=== PATIENT | male | born 1945 | race Caucasian/White ===

== ENCOUNTER 2019-04-04 10:09 | Inpatient (IN) ==
--- NOTE | 2019-04-04 10:27 | Emergency Department Note ---
ED Disposition Clinical Impression: Hypertension, Pre-syncope, Penicillin allergy, NSTEMI (non-ST elevated myocardial infarction), Tachycardia Disposition: Still a Patient Condition on Discharge: Fair Instructions: DI for Syncope in Adults (Fainting), DI for Syncope in Children (Fainting) Referrals: Tyrell Lynch MD [Primary Care Provider] - - Critical Care Critical Care Time: No Attestation: On , the high probability of a clinically significant, sudden or life threaten ing deterioration of the following system(s) required my full and direct attention, intervention and personal management. The time I documented below is in addition to time spent performing reported procedures but includes the following listed in this critical care notation. Medical Decision Making - Charbel Inquiry Pt receiving controlled substance: No Charbel was queried for this patient: No Vital Signs: 04/04/19 10:09 04/04/19 10:36 04/04/19 11:09 Temperature 97.5 F L Temperature Source Oral Pulse Rate [Left Radial] 130 H 126 H 126 H Respiratory Rate 18 20 18 Blood Pressure [Right Arm] 121/81 103/74 L 124/89 Blood Pressure Mean [Right Arm] 94 83 100 Blood Pressure Source [Right Arm] Automatic Cuff Automatic Cuff Blood Pressure Position [Right Arm] Sitting Supine Supine 02 Sat by Pulse Oximetry 98 99 100 Oxygen Delivery Method Room Air Room Air Nasal Cannula Oxygen Flow Rate (LPM) 2 - Lab Data Lab Results 04/04/19 09:30: WBC 9.5, RBC 5.21, Hgb 15.6, Hct 51.9, MCV 99.7 H, MCH 30.0, MCHC 30.1 L, RDW 16.8, Plt Count 412, MPV 7.8, Neut % (Auto) 68.3, Lymph % (Auto) 23.6, [place] % (Auto) 6.5, Eos % (Auto) 1.2, Baso % (Auto) 0.4, Neut # (Aut o) 6.5, Lymph # (Auto) 2.3, [place] # (Auto) 0.6, Eos # (Auto) 0.1, Baso # (Auto) 0.0 04/04/19 09:30: Sodium 138, Potassium 4.4, Chloride 103, Carbon Dioxide 24, Ani on Gap 15.4 H, BUN 19 H, Creatinine 1.30, Estimated Creat Clear 51, Estimated GFR 54 L, Est GFR ( Amer) 65, Glucose 109 H, Calcium 8.8, Total Bilirubin 0.8, AST 25, ALT 40, Alkaline Phosphatase 118 H, Troponin I 0.38 H, Total Protein 6.9, Albumin 3.3 L, Globulin 3.6 H, Albumin/Globulin Ratio 0.9 L 04/04/19 09:30: Magnesium 2.0 04/04/19 09:30: B-Natriuretic Peptide 146 H 04/04/19 09:30: D-Dimer 174 Result diagrams: 04/04/19 09:30 04/04/19 09:30 Orders (Tests/Meds): ED MEDICATIONS Generic Name Dose Route Start Last Admin Trade Name Freq PRN Reason Stop Dose Admin Sodium Chloride 1,000 mls @ 500 mls/hr 04/04/19 10:45 04/04/19 11:21 Sod Chlor 0.9% 1000ml Bag IV 04/04/19 12:44 500 mls/hr .Q2H ADELINE Administration Discontinued Medications Generic Name Dose Route Start Last Admin Trade Name Freq PRN Reason Stop Dose Admin Aspirin 324 mg 04/04/19 11:34 Aspirin 81mg Chewable Tablet PO 04/04/19 11:35 ONCE ONE Ticagrelor 180 mg 04/04/19 11:34 Brilinta 90mg Tablet PO 04/04/19 11:35 ONCE ONE ORDERS Category Date Time Status PT/INR [Prothrombin Time INR] Stat Lab 04/04/19 11:25 Ordered PT/PTT Stat Lab 04/04/19 11:26 Ordered - Radiology Data #1 Image(s): Chest Image Reviewed: Yes I reviewed the patient's radiology image Preliminary Findings: Normal/NAD - CT Data CT Scan: Head Time Received: 11:[address] Reviewed: Yes: I have reviewed the patient's CT results, I have viewed the radiologist's interpretation Preliminary Findings: Abnormal Findings Narrative: Bifrontal atrophy, vascular calcifications no acute findings final read by radi ologist is pending. [id number] final report IMPRESSION: 1. No acute intracranial findings. 2. Prominent bilateral frontal subdurals space suggesting small bilateral subdural hygromas 3. Prominent pannus formation at the base of the dens Outpatient MRI of the brain and C-spine may be of further value. - ECG Data Tracing #1 Sinus tachycardia 126/min left axis deviation right bundle branch block with T wave inversions in the lateral leads that is new in comparison to a prior EKG on September 07, 2016 ECG initial impression date: 04/04/19 ECG initial impression time: 10:30 Medical Decision Narrative: I texted this new EKG old EKG from [address] Ascencio the on-call heating systems installer who determined that this was not an acute event and the patient need to be admitted, heparinized, IV fluids, enteric-coated aspirin and Brilinta. He planned a catheterization in the morning. Mr. Rendon and his had plenty of questions about missing earlier signs of his non-ST elevation NE and I answered the questions the best of my ability with the nursing staff present in the room. [address] Duong to admit Mr. Rendon as she is contract specialist for Dr. Morataya/Cris with a consult for Dr. Cabral. Syncope HPI - General Chief Complaint: Syncope Stated Complaint: syncope Time Seen by Provider: 04/04/19 10:24 Mode of Arrival: Ambulatory Source of Information: Patient, Spouse, EMS Limitations: No Limitations - History of Present Illness HPI narrative: 73 years old white male with history of hypertension and macular degeneration. Today at 9 AM while standing in buddhist she developed an episode of feeling hot, dizzy, unable to speak, shortness of breath and had to sit down that lasted for less than 60 seconds. His witnessed the above account, though he was unable to speak but his eyes remained open, he did not lose urine or bowel control and had no tongue biting no tonic-clonic activity. The patient denies having chest pain, palpitations, abdominal pain, nausea vomiting or diarrhea. Also, he denies having back pain weakness numbness tingling involving upper or lower extremities. She remained asymptomatic until the ambulance arrival and eventually arriving to [facility] 1 hour later. complaint: felt faint, almost passed out Onset (ago): hour(s) Duration of episode: 1 -: minutes(s) Prodromal symptoms: none Witnessed: yes - by bystander Context: standing up Injuries sustained associated with event: none Current symptoms: none Treatments prior to arrival: none - Related Data Home Medications Medication Instructions Recorded Confirmed Lisinopril [Lisinopril 10mg Tab] 10 mg PO DAILY 04/04/19 04/04/19 Allergies Allergy/AdvReac Type Severity Reaction Status Date / Time Penicillins [PENICILLINS] Allergy Unknown Verified 04/04/19 10:18 [facility] History - Hepatitis A Screen Attestation statement:: This patient has been screened for Hepatitis A risk factors. I have reviewed the patient's past medical history: Yes ROS Obtained: Yes All systems reviewed & no additional complaints Physical Exam - General General appearance: alert, in no apparent distress - Head Head exam: atraumatic, normocephalic, normal inspection - Eye Eye exam: Present: normal appearance, PERRL, EOMI. Absent: scleral icterus, nystagmus - ENT ENT exam: Present: normal exam, normal oropharynx, mucous membranes moist, TM's normal bilaterally, normal external ear exam, other (Loss of lower central incisors no tongue biting miranda. ) - Neck Neck exam: Present: normal inspection, full ROM, trachea midline. Absent: meningismus, lymphadenopathy - Chest Chest inspection: Present: normal inspection, symmetric chest wall rise. Absent: tenderness - Respiratory Respiratory exam: Present: normal lung sounds bilaterally. Absent: respiratory distress, wheezes - Cardiovascular Cardiovascular exam: Present: regular rate, normal rhythm, normal heart sounds. Absent: JVD - Abdominal Exam Abdominal exam: Present: soft, normal bowel sounds, other (Soft abdomen with no pulsating masses equal bilateral femoral pulses.). Absent: distention, tenderness, guarding, rebound, rigidity, Sheridan's sign, tenderness at McBurney's Point - Extremities Exam Extremities exam: Present: normal inspection, full ROM, normal capillary refill. Absent: tenderness, pedal edema, joint swelling, calf tenderness - Back Exam Back exam: Present: normal inspection. Absent: tenderness, CVA tenderness (R), CVA tenderness (L) - Neurological Exam Neurological exam: Present: alert, oriented X3, CN II-XII intact, motor sensory deficit, reflexes normal (No nystagmus, no pronator drift and intact [id number]) - Psychiatric Psychiatric exam: Present: normal affect, normal mood - Skin Skin exam: Present: warm, dry, intact, normal color - Lymphatic Lymphatic Findings: no adenopathy
[2019-04-04 10:39] LABS: Basophils % 0.4 % (0.1-2.0); Eosinophils # 0.1 K/mm3 (0.0-0.4); Eosinophils % 1.2 % (0.1-12.0); Hematocrit 51.9 % (42.0-52.0); Hemoglobin 15.6 g/dL (14.1-18.0); Lymphocytes # 2.3 K/mm3 (0.7-4.5); Lymphocytes % 23.6 % (10-50); Mean Corpuscular HGB Conc 30.1 g/dL (31.8-35.4); Mean Corpuscular Volume 99.7 fl (80-94); Mean Platelet Volume 7.8 fl (7.4-10.4); Monocytes # 0.6 K/mm3 (0.1-1.0); Monocytes % 6.5 % (1.7-9.3); Neutrophils # 6.5 K/mm3 (1.8-7.8); Neutrophils % 68.3 % (37.0-80.0); Platelet Count 412 K/mm3 (142-424); Red Blood Count 5.21 M/mm3 (4.60-6.20); Red Cell Distribution Width 16.8 % (11.5-17.5); White Blood Count 9.5 K/mm3 (4.8-10.8)
[2019-04-04 10:46] LABS: Albumin Level 3.3 gm/dL (3.4-5.0); Albumin/Globulin Ratio 0.9 (1.1-1.8); Anion Gap 15.4 mEq/L (5-15); Bilirubin,Total 0.8 mg/dL (0.2-1.0); Calcium 8.8 mg/dL (8.5-10.1); Globulin 3.6 gm/dl (1.3-3.2); Total Protein,Serum 6.9 gm/dL (6.4-8.2)
[2019-04-04 11:48] LABS: Activated Partial Thrombo Time 25.2 seconds (23.6-34.0); INR 0.99 (0.9-1.1); Prothrombin Time 10.3 seconds (9.4-11.8)
--- NOTE | 2019-04-04 12:23 | History & Physical Report ---
*Admission Date: 04/04/19 *Chief complaint: Syncopal episode *History of present illness: Patient is a 73-year-old white male presented to our ED with a syncopal episode x1 this morning. He mentioned that he was in the [employer] when the incident happened. He does admit to having loss of consciousness for a few seconds. However he was able to regain his consciousness and was alert and oriented x3. He denied having any chest pain at all now or in the past 30 days. He denies having any significant cardiac history. His risk factors include hypertension, smoking and his age. He denied having any atypical chest pain symptoms as well. He mentions that he did feel very hot and sweaty right before his episode. He tends to have some syncopal episodes related to dehydration in the past. In the ED, the EKG shows sinus tachycardia with some old changes and nothing acute for now. No signs of NSTEMI noted in the EKG. Given the fact that patient denies having any chest pain and no significant EKG changes, cardiac etiology is the least likely diagnosis here although the troponin was elevated. His troponin elevation could be from noncardiac etiology such as dehydration related to heat exhaustion in his case. Upon arrival to the floor, family was very confused as to why he is getting heparin drip. I explained extensively that this may not be cardiac etiology, and there is no need to follow-up with his troponins as he is not having any chest pain at all whatsoever. However I assured them that we will be getting echocardiogram to assess his heart function and get orthostatic vital signs to rule out any vasovagal etiology. The family is in agreement with this plan and so I will be stopping heparin, Brilinta at this time. We will await for cardiac evaluation tomorrow morning. [facility] History I have reviewed the patient's past medical history: Yes Medical History: Reports:: Hypertension Denies:: Dementia, Depression, Gastrointestinal Bleed, Urinary Tract Infection *Have you ever received a pneumonia vaccine?: No *Have you received a flu vaccine this season?: No Other Medical History: Reports: Other (Macular degeneration) Laterality Cases: Bilateral: Tonsillectomy Amputation: No Fractures: No - *Social History Smoking Status: Current every day smoker Tobacco Type: cigarettes # Packs/Day (cigarettes): 1 Alcohol Intake: never Substance Use Type: denies use *Occupational Status:: other *Travel in the last 8 weeks: None Family Hx:: No significant family history Meds Home Medications Medication Instructions Recorded Confirmed Type Lisinopril/Hydrochlorothiazide 1 tab PO DAILY 04/04/19 04/04/19 History [Lisinopril-Hctz 20-12.5 mg Tab] Allergies Allergy/AdvReac Type Severity Reaction Status Date / Time Penicillins [PENICILLINS] Allergy Unknown Verified 04/04/19 10:18 Exam Vital signs and Labs for Last 24 Hours: Temp Pulse Resp BP Pulse Ox 97.5 F L 126 H 18 124/89 100 04/04/19 10:09 04/04/19 11:09 04/04/19 11:09 04/04/19 11:09 04/04/19 11:09 Laboratory Results - last 24 hr 04/04/19 09:30: WBC 9.5, RBC 5.21, Hgb 15.6, Hct 51.9, MCV 99.7 H, MCH 30.0, MCHC 30.1 L, RDW 16.8, Plt Count 412, MPV 7.8, Neut % (Auto) 68.3, Lymph % (Auto) 23.6, [place] % (Auto) 6.5, Eos % (Auto) 1.2, Baso % (Auto) 0.4, Neut # (Auto) 6.5, Lymph # (Auto) 2.3, [place] # (Auto) 0.6, Eos # (Auto) 0.1, Baso # (Auto) 0.0 04/04/19 09:30: Sodium 138, Potassium 4.4, Chloride 103, Carbon Dioxide 24, Anion Gap 15.4 H, BUN 19 H, Creatinine 1.30, Estimated Creat Clear 51, Estimated GFR 54 L, Est GFR ( Amer) 65, Glucose 109 H, Calcium 8.8, Total Bilirubin 0.8, AST 25, ALT 40, Alkaline Phosphatase 118 H, Troponin I 0.38 H, Total Protein 6.9, Albumin 3.3 L, Globulin 3.6 H, Albumin/Globulin Ratio 0.9 L 04/04/19 09:30: Magnesium 2.0 04/04/19 09:30: B-Natriuretic Peptide 146 H 04/04/19 09:30: D-Dimer 174 04/04/19 09:30: PT 10.3, INR 0.99, APTT 25.2 I & O for Last 24 hours: Intake & Output 04/02/19 04/03/19 04/04/19 04/05/19 11:59 11:59 11:59 11:59 Weight 160 lb - *Routine HEENT Exam Head: Present: normocephalic Eye: Present: EOMI, PERRL ENT: Present: mucous membranes moist - *Routine Neck Exam Present: supple. Absent: lymphadenopathy - *Routine Respiratory Exam Present: CTA bilaterally - *Routine Cardiovascular Exam Present: RRR - *Routine Abdominal Exam Present: soft, normoactive bowel sounds. Absent: tenderness - *Routine Extremities Exam Absent: cyanosis, clubbing, edema - *Routine Skin Exam Present: warm. Absent: rash - *Routine Neurological Exam Present: alert, oriented X3 Assessment and Plan (1) Syncope Current visit: Yes Status: Acute Category: Medical Code(s): R55 - Syncope and collapse (2) Sinus tachycardia Current visit: Yes Status: Acute Category: Medical Code(s): R00.0 - Tachycardia, unspecified (3) Elevated brain natriuretic peptide (BNP) level Current visit: Yes Status: Acute Category: Medical Code(s): R79.89 - Other specified abnormal findings of blood chemistry (4) Hypertension Current visit: Yes Status: Acute Category: Medical Code(s): I10 - Essential (primary) hypertension (5) Tobacco dependence due to cigarettes Current visit: Yes Status: Acute Category: Medical Code(s): F17.210 - Nicotine dependence, cigarettes, uncomplicated - Assessment and plan all Dx Assessment and Plan for all problems:: We will get orthostatic vital signs, echocardiogram and give IV fluid hydration. We will stop Brilinta and heparin drip as his elevation his troponin is not due to cardiac etiology. We will still await cardiac evaluation in the a.m.
--- NOTE | 2019-04-04 13:47 | Pharmacy Consult Notes ---
[facility] Pharmacy VTE Monitoring - Patient Demographics Admission date: 04/04/19 Report Date: 04/04/19 Time: 13:47 Allergies/Adverse Reactions: Patient Allergies Penicillins [PENICILLINS] Allergy (Unknown, Verified 04/04/19 10:18) Height: 1.8 m Weight: 76.232 kg Patient Problems: Current Active Problems (Updated 04/04/19 @ 13:11 by Brandy Duong MD) Hypertension (Acute) Pre-syncope (Acute) Penicillin allergy (Acute) NSTEMI (non-ST elevated myocardial infarction) (Acute) Tachycardia (Acute) Sinus tachycardia (Acute) Elevated brain natriuretic peptide (BNP) level (Acute) Syncope (Acute) - VTE Risk Labs: VTE Related Lab Results Hgb 15.6 g/dL (14.1-18.0) 04/04/19 09:30 Hct 51.9 % (42.0-52.0) 04/04/19 09:30 Plt Count 412 K/mm3 (142-424) 04/04/19 09:30 PT 10.3 seconds (9.4-11.8) 04/04/19 09:30 INR 0.99 (0.9-1.1) 04/04/19 09:30 APTT 25.2 seconds (23.6-34.0) 04/04/19 09:30 BUN 19 mg/dL (7-18) H 04/04/19 09:30 Creatinine 1.30 mg/dL (0.70-1.30) 04/04/19 09:30 Estimated Creat Clear 51 mL/min (50-200) 04/04/19 09:30 Was VTE Risk Assessment Performed: Yes VTE Score: 1 VTE Risk Level: Low Risk - Prophylaxis VTE Prophylaxis Ordered?: Yes Types of VTE Prophylaxis: TEDS Knee High Location of Applied Device: Bilateral Lower Extremeties - VTE Diagnosis Confirmed Treatment or plan recommended: Continue Current Treatment
[2019-04-05 07:39] LABS: Basophils % 0.3 % (0.1-2.0); Eosinophils # 0.1 K/mm3 (0.0-0.4); Eosinophils % 1.2 % (0.1-12.0); Hematocrit 48.2 % (42.0-52.0); Hemoglobin 14.9 g/dL (14.1-18.0); Lymphocytes # 1.2 K/mm3 (0.7-4.5); Lymphocytes % 15.1 % (10-50); Mean Corpuscular Volume 98.2 fl (80-94); Mean Platelet Volume 7.2 fl (7.4-10.4); Monocytes # 0.4 K/mm3 (0.1-1.0); Monocytes % 4.6 % (1.7-9.3); Neutrophils # 6.4 K/mm3 (1.8-7.8); Neutrophils % 78.9 % (37.0-80.0); Platelet Count 312 K/mm3 (142-424); Red Cell Distribution Width 16.9 % (11.5-17.5); White Blood Count 8.1 K/mm3 (4.8-10.8)
[2019-04-05 07:51] LABS: Albumin/Globulin Ratio 0.9 (1.1-1.8); Bilirubin,Total 0.6 mg/dL (0.2-1.0); Calcium 8.2 mg/dL (8.5-10.1); Globulin 3.3 gm/dl (1.3-3.2); Total Protein,Serum 6.3 gm/dL (6.4-8.2)
--- NOTE | 2019-04-05 08:14 | Progress Note ---
Internal Medicine - PN: Subj *Date: 04/05/19 *Time: 08:11 Interval history: Patient is felt good overnight. Has had no complaints of syncope or near syncope or chest pain. Exam Vital signs and Labs for Last 24 Hours: Temp Pulse Resp BP Pulse Ox 97.6 F 128 H 20 123/77 100 04/05/19 04:00 04/05/19 04:00 04/05/19 04:00 04/05/19 05:28 04/05/19 04:00 Laboratory Results - last 24 hr 04/04/19 09:30: WBC 9.5, RBC 5.21, Hgb 15.6, Hct 51.9, MCV 99.7 H, MCH 30.0, MCHC 30.1 L, RDW 16.8, Plt Count 412, MPV 7.8, Neut % (Auto) 68.3, Lymph % (Auto) 23.6, [place] % (Auto) 6.5, Eos % (Auto) 1.2, Baso % (Auto) 0.4, Neut # (Auto) 6.5, Lymph # (Auto) 2.3, [place] # (Auto) 0.6, Eos # (Auto) 0.1, Baso # (Auto) 0.0 04/04/19 09:30: Sodium 138, Potassium 4.4, Chloride 103, Carbon Dioxide 24, Anion Gap 15.4 H, BUN 19 H, Creatinine 1.30, Estimated Creat Clear 51, Estimated GFR 54 L, Est GFR ( Amer) 65, Glucose 109 H, Calcium 8.8, Total Bilirubin 0.8, AST 25, ALT 40, Alkaline Phosphatase 118 H, Troponin I 0.38 H, Total Protein 6.9, Albumin 3.3 L, Globulin 3.6 H, Albumin/Globulin Ratio 0.9 L 04/04/19 09:30: Magnesium 2.0 04/04/19 09:30: B-Natriuretic Peptide 146 H 04/04/19 09:30: D-Dimer 174 04/04/19 09:30: PT 10.3, INR 0.99, APTT 25.2 04/04/19 12:10: Troponin I 0.38 H 04/05/19 07:30: WBC 8.1, RBC 4.90, Hgb 14.9, Hct 48.2, MCV 98.2 H, MCH 30.4, MCHC 31.0 L, RDW 16.9, Plt Count 312, MPV 7.2 L, Neut % (Auto) 78.9, Lymph % (Auto) 15.1, [place] % (Auto) 4.6, Eos % (Auto) 1.2, Baso % (Auto) 0.3, Neut # (Auto) 6.4, Lymph # (Auto) 1.2, [place] # (Auto) 0.4, Eos # (Auto) 0.1, Baso # (Auto) 0.0 04/05/19 07:30: Sodium 141, Potassium 4.0, Chloride 109 H, Carbon Dioxide 20 L, Anion Gap 16.0 H, BUN 15, Creatinine 0.94 D, Estimated Creat Clear 69, Estimated GFR 78, Est GFR ( Amer) 95 D, Glucose 94, Calcium 8.2 L, Total Bilirubin 0.6, AST 24, ALT 36, Alkaline Phosphatase 108, Total Protein 6.3 L, Albumin 3.0 L, Globulin 3.3 H, Albumin/Globulin Ratio 0.9 L I & O for Last 24 hours: Intake & Output 04/02/19 04/03/19 04/04/19 04/05/19 11:59 11:59 11:59 11:59 Intake Total 1300 / 1300 Balance 1300 / 1300 Weight 160 lb 166 lb 4 oz Narrative: Alert, pleasant, sitting in his chair, heart rate regular. Lungs clear, abdomen soft. No clubbing or edema. Assessment and Plan (1) Syncope Current visit: Yes Status: Acute Category: Medical Code(s): R55 - Syncope and collapse (2) Sinus tachycardia Current visit: Yes Status: Acute Category: Medical Code(s): R00.0 - Tachycardia, unspecified (3) Elevated brain natriuretic peptide (BNP) level Current visit: Yes Status: Acute Category: Medical Code(s): R79.89 - Other specified abnormal findings of blood chemistry (4) Hypertension Current visit: Yes Status: Acute Category: Medical Code(s): I10 - Essential (primary) hypertension (5) Tobacco dependence due to cigarettes Current visit: Yes Status: Acute Category: Medical Code(s): F17.210 - Nicotine dependence, cigarettes, uncomplicated - Assessment and plan all Dx Assessment and Plan for all problems:: Syncopal episodes resolved. Troponin still elevated. Continue to hold HCTZ, restart lisinopril. Cardiology consultation.
--- NOTE | 2019-04-05 08:53 | Consult Report ---
History of Present Illness Consult date: 04/05/19 Requesting physician: Tyrell Lynch Consult reason: chest pain Chief complaint: NSTEMI Additional Medical History:: 1. Tobacco use since teenage years 2. HTN 3. Anxiety with history of fainting in stressful situations. 4. Penicillin allergy History of present illness: 73 yo WM admitted for syncope while at [employer] yesterday. Denies any warning symptoms of chest pain, pressure, palpitations or chest tightness. He did relate feeling warm and nauseated. Denies any recent diarrhea or vomiting. relates he had some sinus symptoms 1-2 wks ago for which he took Coricidin HBP. He denies any history of cardiac problems or recent exertional symptoms. Patient relates being treated for hypertension for at least 15 years and he has smoked since he was a teenager. He denies diabetes or hyperlipidemia. Patient was admitted for observation with initial troponin negative but turn positive overnight. EKG is sinus with left axis deviation/left anterior hemiblock with right bundle branch block and possible old inferior CT with lateral ST segment depression suggestive of ischemia. Echocardiogram performed this morning shows reduced ejection fraction of 35%. Cardiology consulted for evaluation of non-ST elevation CT. [facility] History Medical History: Reports:: Hypertension Denies:: Dementia, Depression, Diabetes Mellitus Type 1, Diabetes Mellitus Type 2, Gastrointestinal Bleed, Urinary Tract Infection *Have you ever received a pneumonia vaccine?: Yes *Have you received a flu vaccine this season?: Yes Other Medical History: Reports: Other (Macular degeneration) Laterality Cases: Bilateral: Tonsillectomy Other Surgeries: Yes: Other (tonsillectomy) Amputation: No Fractures: No - *Social History Smoking Status: Current every day smoker Tobacco Type: cigarettes # Packs/Day (cigarettes): 1 Alcohol Intake: current Alcohol Intake Frequency:: 0-2 drinks per day Substance Use Type: denies use *Occupational Status:: other Household Members: spouse *Travel in the last 8 weeks: None - Psychiatric History Expresses thoughts of harming self/others: None Suicide Plan Description: No Plan Pschychiatric History:: Denies:: Depression Family Hx:: No significant family history Meds Home Medications Medication Instructions Recorded Confirmed Type Lisinopril/Hydrochlorothiazide 1 tab PO DAILY 04/04/19 04/04/19 History [Lisinopril-Hctz 20-12.5 mg Tab] Allergies Allergy/AdvReac Type Severity Reaction Status Date / Time Penicillins [PENICILLINS] Allergy Unknown Verified 04/04/19 10:18 Review of Systems - *Cardiovascular Reports chest pain, Denies shortness of breath - *Respiratory Denies shortness of breath - *Gastrointestinal Reports nausea, Denies vomiting - *Genitourinary Denies blood in urine - *Musculoskeletal Denies joint pain - *Neurologic Reports fainting, Denies dizziness Exam Vital signs and Labs for Last 24 Hours: Temp Pulse Resp BP Pulse Ox 97.8 F 137 H 17 104/70 L 97 04/05/19 08:11 04/05/19 08:16 04/05/19 08:11 04/05/19 08:16 04/05/19 08:16 Laboratory Results - last 24 hr 04/04/19 09:30: WBC 9.5, RBC 5.21, Hgb 15.6, Hct 51.9, MCV 99.7 H, MCH 30.0, MCHC 30.1 L, RDW 16.8, Plt Count 412, MPV 7.8, Neut % (Auto) 68.3, Lymph % (Auto) 23.6, [place] % (Auto) 6.5, Eos % (Auto) 1.2, Baso % (Auto) 0.4, Neut # (Auto) 6.5, Lymph # (Auto) 2.3, [place] # (Auto) 0.6, Eos # (Auto) 0.1, Baso # (Auto) 0.0 04/04/19 09:30: Sodium 138, Potassium 4.4, Chloride 103, Carbon Dioxide 24, Anion Gap 15.4 H, BUN 19 H, Creatinine 1.30, Estimated Creat Clear 51, Estimated GFR 54 L, Est GFR ( Amer) 65, Glucose 109 H, Calcium 8.8, Total Bilirubin 0.8, AST 25, ALT 40, Alkaline Phosphatase 118 H, Troponin I 0.38 H, Total Protein 6.9, Albumin 3.3 L, Globulin 3.6 H, Albumin/Globulin Ratio 0.9 L 04/04/19 09:30: Magnesium 2.0 04/04/19 09:30: B-Natriuretic Peptide 146 H 04/04/19 09:30: D-Dimer 174 04/04/19 09:30: PT 10.3, INR 0.99, APTT 25.2 04/04/19 12:10: Troponin I 0.38 H 04/05/19 07:30: WBC 8.1, RBC 4.90, Hgb 14.9, Hct 48.2, MCV 98.2 H, MCH 30.4, MCHC 31.0 L, RDW 16.9, Plt Count 312, MPV 7.2 L, Neut % (Auto) 78.9, Lymph % (Auto) 15.1, [place] % (Auto) 4.6, Eos % (Auto) 1.2, Baso % (Auto) 0.3, Neut # (Auto) 6.4, Lymph # (Auto) 1.2, [place] # (Auto) 0.4, Eos # (Auto) 0.1, Baso # (Auto) 0.0 04/05/19 07:30: Sodium 141, Potassium 4.0, Chloride 109 H, Carbon Dioxide 20 L, Anion Gap 16.0 H, BUN 15, Creatinine 0.94 D, Estimated Creat Clear 69, Estimated GFR 78, Est GFR ( Amer) 95 D, Glucose 94, Calcium 8.2 L, Total Bilirubin 0.6, AST 24, ALT 36, Alkaline Phosphatase 108, Total Protein 6.3 L, Albumin 3.0 L, Globulin 3.3 H, Albumin/Globulin Ratio 0.9 L I & O for Last 24 hours: Intake & Output 04/02/19 04/03/19 04/04/19 04/05/19 11:59 11:59 11:59 11:59 Intake Total 1779 / 1780 Balance 1779 / 1780 Weight 160 lb 166 lb 4 oz - *Routine HEENT Exam Head: Present: normocephalic Eye: Present: EOMI, PERRL ENT: Present: mucous membranes moist - *Routine Neck Exam Present: supple. Absent: JVD, carotid bruit - *Routine Respiratory Exam Present: CTA bilaterally. Absent: accessory muscle use, rales, rhonchi, wheezes - *Routine Cardiovascular Exam Present: tachycardia. Absent: murmur, gallop, rubs - *Routine Abdominal Exam Present: soft. Absent: tenderness, distended, guarding - *Routine Extremities Exam Absent: edema, calf tenderness - *Routine Neurological Exam Present: alert, oriented X3, moving all extremities Assessment and Plan (1) Syncope Current visit: Yes Status: Acute Category: Medical Code(s): R55 - Syncope and collapse (2) Sinus tachycardia Current visit: Yes Status: Acute Category: Medical Code(s): R00.0 - Tachy cardia, unspecified (3) Elevated brain natriuretic peptide (BNP) level Current visit: Yes Status: Acute Category: Medical Code(s): R79.89 - Other specified abnormal findings of blood chemistry (4) Hypertension Current visit: Yes Status: Acute Category: Medical Code(s): I10 - Essential (primary) hypertension (5) Tobacco dependence due to cigarettes Current visit: Yes Status: Acute Category: Medical Code(s): F17.210 - Nicotine dependence, cigarettes, uncomplicated (6) NSTEMI (non-ST elevated myocardial infarction) Current visit: No Status: Acute Category: Medical Code(s): I21.4 - Non-ST elevation (NSTEMI) myocardial infarction - Assessment and plan all Dx Assessment and Plan for all problems:: 1. In light of the patient's non-ST elevation CT, abnormal EKG and abnormal echocardiogram, recommend proceeding with left heart catheterization today. 2. Further recommendations to follow. 3. He did receive a loading dose of aspirin and Brilinta yesterday. 4. We will continue metoprolol therapy and hold lisinopril this morning due to sinus tachycardia and low blood pressure.
--- NOTE | 2019-04-05 15:28 | Discharge Summary ---
General - General Admission date:: 04/04/19 Discharge date: 04/05/19 HPI HPI: Patient is a 73-year-old white male presented to our ED with a syncopal episode x1 this morning. He mentioned that [facility] [employer] when the incident happened. He does admit to having loss of consciousness for a few seconds. However he was able to regain his consciousness and was alert and oriented x3. He denied having any chest pain at all now or in the past 30 days. He denies having any significant cardiac history. His risk factors include hypertension, smoking and his age. He denied having any atypical chest pain symptoms as well. He mentions that he did feel very hot and sweaty right before his episode. He tends to have some syncopal episodes related to dehydration in the past. Hospital Course Hospital Course: Patient admitted -ruled in for CT. Taken to quality assurance qa lab technician - results below: ANGIOGRAPHIC RESULTS: 1. The left main artery has a distal 50% stenosis which extends into the proximal LAD 2. The left anterior descending artery has an ostial 50-60% stenosis. The remaining vessel has mild luminal irregularities. A large high diagonal artery or ramus intermedius has an ostial 70% stenosis 3. The circumflex artery is a small nondominant vessel with mild atheromatous 30% plaque in the first obtuse marginal artery 4. The right coronary artery is a dominant vessel and occluded at mid vessel. The distal vessel fills via collaterals primarily from the LAD 5. The BERRIOS ventriculogram reveals reduced ejection fraction estimated at 35-40% 6. The left ventricular end-diastolic pressure 20 mmHg IMPRESSION: 1. Severe distal left main disease 2. Severe ostial LAD disease which extends into a large ramus intermedius 3. Chronically occluded right coronary artery which fills via left to right collaterals 4. Reduced ejection fraction 5. Elevated LVEDP PLAN: 1. Standard therapy for systolic heart failure 2. Patient would benefit from low-dose beta blockers within the titration of the next couple of days 3. Patient's best approach and revascularization's surgical evaluation. I believe patient should be transferred to [facility] and have CT surgery consult for possible surgical revascularization 4. Standard therapy for ischemic heart disease with aggressive risk factor modification Patient then tx to for CT eval. Objective Vital signs: Temp Pulse Resp BP Pulse Ox 97.8 F 128 H 18 125/74 97 04/05/19 08:11 07/08/19 14:40 04/05/19 14:40 04/05/19 14:40 04/05/19 14:40 - *Routine HEENT Exam Head: Present: normocephalic - *Routine Neck Exam Present: supple, full ROM - *Routine Respiratory Exam Present: CTA bilaterally - *Routine Cardiovascular Exam Present: RRR, Normal S1, Normal S2 - *Routine Abdominal Exam Present: soft, normoactive bowel sounds - *Routine Neurological Exam Present: alert, oriented X3 Results Labs on day of discharge: Labs from last 24 hours 04/05/19 04/05/19 07:30 07:30 WBC 8.1 RBC 4.90 Hgb 14.9 Hct 48.2 MCV 98.2 H MCH 30.4 MCHC 31.0 L RDW 16.9 Plt Count 312 MPV 7.2 L Neut % (Auto) 78.9 Lymph % (Auto) 15.1 [place] % (Auto) 4.6 Eos % (Auto) 1.2 Baso % (Auto) 0.3 Neut # (Auto) 6.4 Lymph # (Auto) 1.2 [place] # (Auto) 0.4 Eos # (Auto) 0.1 Baso # (Auto) 0.0 Sodium 141 Potassium 4.0 Chloride 109 H Carbon Dioxide 20 L Anion Gap 16.0 H BUN 15 Creatinine 0.94 D Estimated Creat Clear 69 Estimated GFR 78 Est GFR ( Amer) 95 D Glucose 94 Calcium 8.2 L Total Bilirubin 0.6 AST 24 ALT 36 Alkaline Phosphatase 108 Total Protein 6.3 L Albumin 3.0 L Globulin 3.3 H Albumin/Globulin Ratio 0.9 L DS: Diagnosis - Discharge Diagnosis (1) Syncope Status: Resolved (2) Sinus tachycardia Status: Resolved (3) Elevated brain natriuretic peptide (BNP) level Status: Acute (4) Hypertension Status: Acute (5) Tobacco dependence due to cigarettes Status: Acute (6) NSTEMI (non-ST elevated myocardial infarction) Status: Acute (7) Coronary atherosclerosis Status: Acute Discharge Plan - Patient Discharge Instructions ACTIVITY: Continue current activity DIET: continue same diet Patient Instructions: DI for Syncope in Adults (Fainting), Pulmonary Hypertension -- Adult, DI for Tachycardia - Follow up Plan Follow up with: Pino Mars [Referring] - Disposition: Xfer Short-Term Hosp Home Medications: Home Medications Medication Instructions Recorded Confirmed Type Lisinopril/Hydrochlorothiazide 1 tab PO DAILY 04/04/19 04/04/19 History [Lisinopril-Hctz 20-12.5 mg Tab] Prescriptions/Medication Reconciliation: Continued Lisinopril/Hydrochlorothiazide [Lisinopril-Hctz 20-12.5 mg Tab] 1 tab PO DAILY
--- NOTE | 2019-04-05 16:58 | Cardiology Report ---
PROCEDURE: 2-D M-mode and color Doppler study INDICATIONS FOR THE TEST: Chest pain COPD Heart Murmur Tobacco Smoking Palpitations Fatigue SyncopeX Edema HypertensionXDiabetes Mellitus Rheumatic Fever SOB VELEZ Obesity Hyperlipidemia Family History HD Additional History TACHYCARDIA PATIENT INFORMATION HEIGHT: 70 WEIGHT:160 GENDER: Male B/P:124/89 2-D/M-MODE INTERPRETATION: 2-D MEASUREMENTS OBSERVED VALUES IN CMS Right Ventricular Dimension (RVDd) 2.7 Interventricular Septum (Thickness)(IVsd) 1.2 Left Ventricular Internal Dimensions(LVIDd) 4.8 Left Ventricular Posterior Wall (Thickness)(LVPWd) 1.4 Aortic Root 3.6 Aortic Cusp Separation 2.0 Left Atrial Dimensions (LAD) 3.7 2D 1. Technically very difficult study because of the patient's factor and poor acoustic windows, patient was tachycardic throughout this study. 2. Left atrium is mildly enlarged, left ventricle is normal size, mild concentric left ventricular hypertrophy, visually estimated ejection fraction is probably 40%, there appears to be moderate hypokinesis involving the inferior basal and basal septal wall. A follow-up repeat study is recommended once tachycardia resolved for accurate assessment. 3. The right atrium is mildly enlarged, right ventricle is normal size and contractility. 4. The aortic valve is thickened and calcified leaflet continue to display mobility. 5. The mitral and tricuspid valve leaflets are minimally thickened. 6. The pulmonic valve is poorly visualized. 7. No significant pericardial effusion noted. DOPPLER INTERROGATION: Doppler interrogation of the aortic, mitral and tricuspid valvular presence of mild mitral and tricuspid regurgitation, tricuspid regurgitation jet velocity is inadequate for calculation of the right ventricular systolic pressure, diastolic parameters are inconclusive. CONCLUSION: 1. Technically very difficult study because of the patient's factor and poor acoustic windows, patient was tachycardic throughout this study. 2. Mild biatrial enlargement, normal left ventricular size, mild concentric left ventricular hypertrophy, visually estimated ejection fraction approximately 40% with segmental wall motion abnormality described above, a repeat follow-up study is recommended after tachycardia resolved for accurate assessment. 3. Mild mitral and tricuspid regurgitation 4. No significant pericardial effusion noted.
== END 2019-04-05 18:33 | disposition short-term general hospital (02) | DRG 281 ==
LOC: ER 10:09 → 2ND 12:05
PROVIDERS: ADMIT Emergency Medicine; ATTEND Internal Medicine Adolescent Medicine
CPT/HCPCS: 70450; 71010; 71045; 71275; 80053; 83735; 83880; 84484; 85025; 85378; 85610; 85730; 93005; 93306; 96365; 96367; 96375; 99152; 99284; C1725; C1769; J1644; Q9967

== ENCOUNTER 2019-06-09 09:31 | Outpatient (RCR) | payer MEDICARE, BC, SELFPAY | END 2019-08-23 13:20 | disposition home or self-care (01) | LOC: PT 09:31 | PROVIDERS: Visit Provider Nurse Practitioner Family | DX: Z95.1 Presence of aortocoronary bypass graft (principal); I25.10 Atherosclerotic heart disease of native coronary artery without angina pectoris | CPT/HCPCS: 93798 ==

== ENCOUNTER → 2019-07-13 07:43 | Outpatient (CLI) | payer MEDICARE, BC, SELFPAY ==
--- NOTE | 2019-07-13 07:47 | CA_ITS ---
APPROVED REPORT EXAM: Comprehensive 2D, Doppler, and color-flow Echocardiogram Land Surveying Survey Worker: Radha Ramos RDCS Ht: 5 ft 10 in Wt: 174lbs BSA: 1.97 BP: 140/74 mmHg Indications: Shortness of Breath, Atrial Fibrillation, CAD, Hyperlipidemia, Hypertension/HDD,CABG 2D Dimensions LVOT 2.10 cm (M/F) 1.5-2.5 M-Mode Dimensions RVDd 2.90 cm (0.9-2.6) LA Diam 5.30 cm (1.9-4.0) LVDd 6.40 cm (3.5-5.7) Ao Diam 3.50 cm (2.0-3.7) LVDs 5.10 cm (3.5-5.7) AV Cusp 2.40 cm (1.5-2.6) IVSd 1.10 cm (0.6-1.1) PWd 1.20 cm (0.6-1.1) EF (Teich) 40.70% FS 20.30% EDV (Teich) 209.00 mL ESV (Teich) 124.00 mL LV Diastology E/A Ratio 2.3 MED E' 4.39 (< 7 cm/sec) E'/MED E' Ratio 19.90 (>14) LAT E' 11.80 (<10 cm/sec) E/LAT E' Ratio 7.40 (>14) Mitral Valve MV E Max Christian. 87.40 (40-130 cm/s) MV A Velocity 38.00 (40-130 cm/s) E/A Ratio 2.30 Tricuspid Valve TR P. Velocity 346.00 cm/s RAP Estimate 10.00 mmHg RVSP 58.00 mmHg Left Ventricle Left atrium is moderately enlarged, left ventricle is normal size, mild concentric left ventricular hypertrophy, there is abnormal septal motion. Visually estimated ejection fraction 55% with no regional wall motion abnormality, diastolic parameters are inconclusive. Right Ventricle Right atrium is moderately enlarged, right ventricle is mildly dilated with normal contractility. Aortic Valve Aortic valve is thickened and calcified, leaflet continue to display good mobility, there is no aortic stenosis aortic insufficiency. Mitral Valve Mitral valve leaflets are minimally thickened, there is mild mitral regurgitation. Tricuspid Valve Tricuspid valve is grossly normal, there is mild to moderate tricuspid regurgitation, calculated right ventricular systolic pressure is 63 mmHg consistent with moderately elevated right ventricular systolic pressure. Pulmonic Valve Pulmonic valve is poorly visualized. Great Vessels Aortic root is normal size. Pericardium No significant pericardial effusion noted. Conclusion 1. Moderate biatrial enlargement, normal left ventricular size, mild concentric left ventricular hypertrophy, visually estimated ejection fraction 55% with no regional wall motion abnormality, there is abnormal septal motion, diastolic parameters are inconclusive. 2. Enlarged right ventricle with normal contractility. 3. Thickened and calcified aortic valve without aortic stenosis aortic insufficiency. 4. Mild mitral and moderate tricuspid regurgitation, calculated right ventricular systolic pressure is 63 mmHg consistent with moderately elevated right ventricular systolic pressure. 5. No significant pericardial effusion noted 6. Agitated saline contrast study is recommended to rule out intracardiac shunt. Electronically signed by : Parth Ward, 07/14/2019 06:42:53
== END ==
PROVIDERS: PCP Internal Medicine Adolescent Medicine; Visit Provider Nurse Practitioner Family
DX: I25.10 Atherosclerotic heart disease of native coronary artery without angina pectoris; I21.4 Non-ST elevation (NSTEMI) myocardial infarction; I50.20 Unspecified systolic (congestive) heart failure; I51.9 Heart disease, unspecified; R60.0 Localized edema; R93.1 Abnormal findings on diagnostic imaging of heart and coronary circulation; F17.210 Nicotine dependence, cigarettes, uncomplicated; Z86.79 Personal history of other diseases of the circulatory system; Z95.1 Presence of aortocoronary bypass graft; Z95.818 Presence of other cardiac implants and grafts
CPT/HCPCS: 93306

== ENCOUNTER → 2019-11-17 15:22 | Outpatient (CLI) | payer MEDICARE, BC, SELFPAY ==
[2019-11-17 16:45] LABS: Basophils % 0.7 % (0.1-2.0); Eosinophils # 0.1 K/mm3 (0.0-0.4); Eosinophils % 1.7 % (0.1-12.0); Hematocrit 38.1 % (42.0-52.0); Hemoglobin 10.6 g/dL (14.1-18.0); Lymphocytes # 0.9 K/mm3 (0.7-4.5); Lymphocytes % 12.9 % (10-50); Mean Corpuscular HGB Conc 27.9 g/dL (31.8-35.4); Mean Corpuscular Hemoglobin 23.6 pg (27.0-31.2); Mean Corpuscular Volume 84.7 fl (80-94); Mean Platelet Volume 8.3 fl (7.4-10.4); Monocytes # 0.5 K/mm3 (0.1-1.0); Monocytes % 7.8 % (1.7-9.3); Neutrophils # 5.2 K/mm3 (1.8-7.8); Neutrophils % 76.9 % (37.0-80.0); Platelet Count 341 K/mm3 (142-424); Red Cell Distribution Width 20.6 % (11.5-17.5); White Blood Count 6.8 K/mm3 (4.8-10.8)
== END ==
PROVIDERS: Visit Provider Urology
DX: F17.210 Nicotine dependence, cigarettes, uncomplicated (principal); I10 Essential (primary) hypertension; I25.10 Atherosclerotic heart disease of native coronary artery without angina pectoris; I27.20 Pulmonary hypertension, unspecified; Z92.3 Personal history of irradiation; Z95.1 Presence of aortocoronary bypass graft; Z95.818 Presence of other cardiac implants and grafts
CPT/HCPCS: 36415; 85025

== ENCOUNTER → 2019-11-23 13:54 | Outpatient (CLI) | payer MEDICARE, BC, SELFPAY ==
--- NOTE | 2019-11-23 13:56 | CA_ITS ---
APPROVED REPORT EXAM: Comprehensive 2D, Doppler, and color-flow Echocardiogram Client Customer Manager: Radha Ramos RDCS Ht: 5 ft 10 in Wt: 160lbs BSA: 1.90 BP: 137/66 mmHg Indications: PHTN,CAD.CABG,HTN,EX SMOKER Echo Enhancing Agent Comments: AGITATED SALINE GIVEN APPEARS NEGATIVE 2D Dimensions LVOT 2.18 cm (M/F) 1.5-2.5 M-Mode Dimensions RVDd 3.32 cm (0.9-2.6) LVDd 5.62 cm (3.5-5.7) LVDs 4.73 cm (3.5-5.7) IVSd 1.15 cm (0.6-1.1) PWd 1.06 cm (0.6-1.1) EF (Teich) 32.90% FS 15.80% EDV (Teich) 154.90 mL ESV (Teich) 103.90 mL LV Diastology E/A Ratio 0.82 Aortic Valve LVOT Max 144.00 (70-110 cm/s) LVOT VTI 27.15 cm Mitral Valve MV A Velocity 69.00 (40-130 cm/s) Left Ventricle Left atrium is mildly enlarged, left ventricle is normal size, mild concentric left ventricular hypertrophy, visually estimated ejection fraction 50% with no regional wall motion abnormality, there is abnormal septal motion. Grade 1 diastolic dysfunction seen without tissue Doppler evidence of raise left atrial pressure. Right Ventricle Right atrium and right ventricular mildly enlarged with normal contractility. Atria Intra-atrial septum is intact, there is no flow across the interatrial septum, agitated saline contrast study fails to identify intracardiac shunt. Aortic Valve Aortic valve is minimally thickened and calcified, there is no aortic stenosis or aortic insufficiency. Mitral Valve Mitral valve is grossly normal there is mild mitral regurgitation. Tricuspid Valve Tricuspid valve is grossly normal, there is moderate tricuspid regurgitation. Calculated right ventricular systolic pressure 66 mmHg. Pulmonic Valve Pulmonic valve is poorly visualized. Great Vessels Aortic root is normal size. Pericardium No significant pericardial effusion noted Conclusion 1. Mild mitral enlargement, normal left ventricular size, mild concentric left ventricular hypertrophy, visually estimated ejection fraction 50%, there is abnormal septal motion. Grade 1 diastolic dysfunction seen without tissue Doppler evidence of raise left atrial pressure. 2. Mildly enlarged right ventricle with normal contractility. 3. Mild mitral and moderate tricuspid regurgitation, calculated right ventricular systolic pressure 66 mmHg. 4. No significant pericardial effusion noted 5. Agitated saline contrast study fails to identify intracardiac shunt. Electronically signed by : Parth Ward, 11/23/2019 20:18:41
--- NOTE | 2019-11-23 13:56 | CA_ITS ---
APPROVED REPORT Motorized Squad Captain: BRENDAN Laterality: Bilateral Study Quality: Good Indications: IRINA, CAD,CABG Doppler Spectral Velocity Analysis dICA (R) 86.00/27.80 cm/s dICA (L) 75.20/16.10 cm/s Gibson (R) 84.80/23.10 cm/s Gibson (L) 60.40/17.30 cm/s pICA (R) 73.40/16.90 cm/s pICA (L) 56.90/16.30 cm/s dCCA (R) 98.60/27.30 cm/s dCCA (L) 88.20/18.20 cm/s pCCA (R) 105.80/20.20 cm/s pCCA (L) 106.70/23.10 cm/s Vert (R) 29.50/8.80 cm/s Vert (L) 49.40/9.90 cm/s Conclusion Duplex evaluation demonstrates stenosis of the right proximal internal carotid artery in the range of 20-49% with PSV <140 cm/sec, EDV <100 cm/sec, and IC/CC Ratio <4.0.Duplex evaluation demonstrates stenosis of the left proximal internal carotid artery <20% with PSV <140 cm/sec, EDV <100 cm/sec, and IC/CC Ratio <4.0.Antegrade flow seen bilateral vertebral arteries. Electronically signed by : Cordell Beckford MD 11/24/2019 18:11:43
== END ==
PROVIDERS: PCP Internal Medicine Adolescent Medicine; Visit Provider Urology
DX: F17.210 Nicotine dependence, cigarettes, uncomplicated (principal); I10 Essential (primary) hypertension; I25.10 Atherosclerotic heart disease of native coronary artery without angina pectoris; I27.20 Pulmonary hypertension, unspecified; Z92.3 Personal history of irradiation; Z95.1 Presence of aortocoronary bypass graft; Z95.818 Presence of other cardiac implants and grafts; R55 Syncope and collapse
CPT/HCPCS: 93306; 93880

== ENCOUNTER → 2019-11-29 08:08 | Outpatient (CLI) | payer MEDICARE, BC, SELFPAY ==
--- NOTE | 2019-11-29 08:09 | US_ITS ---
PROCEDURE: US ABDOMEN COMPLETE CLINICAL INDICATION: r/o AAA Evaluate for aortic aneurysm COMPARISON: CA ECHO DOPPLER COMPLETE from 11/23/2019 FINDINGS: PANCREAS: Poorly demonstrated due to overlying bowel gas LIVER: No focal liver lesions demonstrated. Homogeneous echogenicity. No intrahepatic biliary ductal dilatation evident. There is appropriate direction of blood flow within a non dilated portal vein RIGHT KIDNEY: No hydronephrosis. There is a 16 mm cyst in the upper pole LEFT KIDNEY: 15 mm cyst in the upper pole of the left kidney GALLBLADDER: 18 mm stone in the gallbladder. No gallbladder wall thickening, pericholecystic fluid, or biliary dilatation. Common bile duct is 2 mm. Smaller stones are present in the gallbladder is well. AORTA: Atheromatous changes of the aorta. No evidence of aneurysm SPLEEN: Unremarkable. Normal size and echogenicity ASCITES: None demonstrated. IMPRESSION: 1. Cholelithiasis. 2. No evidence of aortic aneurysm. 3. Small bilateral renal cysts Dictated by: Cordell Beckford MD 11/29/2019 13:54 Electronically signed by Cordell Beckford MD in [place] 11/29/2019 13:54
== END ==
PROVIDERS: PCP Internal Medicine Adolescent Medicine; Visit Provider Internal Medicine Cardiovascular Disease
DX: R06.00 Dyspnea, unspecified (principal); I25.10 Atherosclerotic heart disease of native coronary artery without angina pectoris; F17.200 Nicotine dependence, unspecified, uncomplicated
CPT/HCPCS: 76700

== ENCOUNTER → 2019-12-06 07:59 | Outpatient (CLI) | payer MEDICARE, BC, SELFPAY ==
[2019-12-06 14:15] LABS: Anion Gap 13.9 mEq/L (5-15); Blood Urea Nitrogen 20 mg/dl (9-20); Calcium 9.4 mg/dl (8.4-10.2); Carbon Dioxide 26 mmol/L (22.0-30.0); Chloride 102 mmol/L (98-107); Estimated Glomerular Filt Rate 110 ml/min (>60); GFR (African American) 133 ML/MIN (>60); Glucose 78 mg/dl (74-100); Potassium 4.9 mmoL/L (3.5-5.1); Sodium 137 mmol/L (136-145)
[2019-12-06 14:23] LABS: NT Pro Brain Natriuretic Pep. 327 pg/mL (0-125)
== END ==
PROVIDERS: Visit Provider Internal Medicine Cardiovascular Disease
DX: R06.00 Dyspnea, unspecified (principal); I27.20 Pulmonary hypertension, unspecified
CPT/HCPCS: 36415; 80048; 83880